=== PATIENT | female | born 2000 | race African-American/Black ===

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

== ENCOUNTER 2023-06-16 21:25 | Emergency (ER) | payer OTHER ==
[2023-06-16 21:31] VITALS: BP 117/69; PULSE 92; RESP 20; TEMP 97.7; BMI 31.8
== END 2023-06-16 22:50 | disposition home or self-care (01) ==
LOC: JER 21:25 → JERFT 21:25
DX: H66.92 Otitis media, unspecified, left ear (principal); H92.02 Otalgia, left ear; Z20.822 Contact with and (suspected) exposure to COVID-19
CPT/HCPCS: 0241U-QW; 99283-25